=== PATIENT | male | born 1955 | race Caucasian/White ===

== ENCOUNTER 2023-11-18 06:23 | Observation (INO) ==
[~2023-11-18 06:23] MED LIST: Metoclopramide 5 MG/ML VIAL (10 mg) IV PRN; NS 0.45% 1000 ml BAG 1,000 ML IV SCH; Naloxone 0.4 mg VIAL 0.4 mg/ml 1 ml VIAL IV PRN; Ondansetron 4 mg VIAL 2 MG/ML 2 ml VIAL IV PRN
[2023-11-18] MEDS ORDERED: Tranexamic Acid 1 GM/100ML BAG 2,000 MG/200 ML BAG IV ONE (06:38)
[2023-11-18] MEDS ORDERED: ceFAZolin 2 GM in NS PREMIX 2 GM/100 ML BAG IVPB ONE (06:38)
[2023-11-18] MEDS ORDERED: ROPIVACAINE 5 MG/ML 30 ML BTL (0.5%) ONE (06:58)
[2023-11-18 07:08] LABS: Rapid COVID-19 Molecular Undetected (Undetected)
[2023-11-18] MEDS ORDERED: Dexamethasone IV 4 MG/ML VIAL 1 ml VIAL ONE (07:31)
[2023-11-18] MEDS ORDERED: fentaNYL 250 mcg/5 ml 50 MCG/ML 5 ml VIAL (250 MCG) ONE (07:31)
[2023-11-18] MEDS ORDERED: Ondansetron 4 mg VIAL 2 MG/ML 2 ml VIAL ONE (07:31)
[2023-11-18] MEDS ORDERED: Propofol 10 MG/ML 20 ML BTL ONE (07:31)
[2023-11-18] MEDS ORDERED: Rocuronium 50 mg VIAL 10 mg/ml 5 ml VIAL (50 mg) ONE (07:31)
[2023-11-18] MEDS ORDERED: Lidocaine 2% PF 5 ML VIAL ONE (07:31)
[2023-11-18] MEDS ORDERED: Midazolam 2 mg/2 ml VIAL 1 mg/ml 2 ml VIAL (2 mg) ONE (07:31)
[2023-11-18] MEDS ORDERED: Morphine 2 MG/ML SYRINGE IV PRN (09:01)
[2023-11-18] MEDS ORDERED: Lactulose 30 ml UDC PO PRN (09:01)
[2023-11-18] MEDS ORDERED: Ondansetron 4 mg VIAL 2 MG/ML 2 ml VIAL IV PRN (09:01)
[2023-11-18] MEDS ORDERED: Ondansetron ODT 4 mg TAB 4 MG TAB PO PRN (09:01)
[2023-11-18] MEDS ORDERED: Magnesium Hydroxide LIQ 30 ML UDC PO PRN (09:01)
[2023-11-18] MEDS ORDERED: Calcium Carb (TUMS) 500 mg CHEW TAB PO PRN (09:01)
[2023-11-18] MEDS ORDERED: Phenylephrine 40 mcg/mL 10mL (400mcg) SYRINGE ONE ×2 (09:19→11:07)
[2023-11-18] MEDS ORDERED: Esmolol 10 MG/ML 10 ML (100 mg) IV ONE (10:55)
[2023-11-18] MEDS ORDERED: Metoprolol Tartrate 5 mg VIAL 5 ml VIAL (1 mg/ml) ONE (11:04)
[2023-11-18] MEDS: Acetaminophen IV 1 GM/100ML 1,000 MG/100 ML BAG IV ONE (11:36)
[2023-11-18] MEDS: Buffered Lidocaine 1% SYRIN 1 ml INTRADERM ONE (11:36)
[2023-11-18] MEDS: Lactated Ringers 1000 ml BAG 1,000 ML IV SCH ×2 (11:37→14:01)
[2023-11-18] MEDS: Scopolamine 1 mg/72hr PATCH TRANSDERM ONE (11:37)
[2023-11-18] MEDS ORDERED: fentaNYL 100 mcg/2 ml 50 MCG/ML VIAL ONE (12:16)
[2023-11-18] MEDS: fentaNYL 100 mcg/2 ml 50 MCG/ML VIAL IV PRN (12:17)
[2023-11-18 15:25] VITALS: BP 100/73
[2023-11-18] MEDS: ceFAZolin 2 GM in NS PREMIX 2 GM/100 ML BAG IVPB SCH (17:03)
[2023-11-18] MEDS ORDERED: Magnesium Hydroxide LIQ 30 ML UDC PO SCH (21:00)
[2023-11-19] MEDS ORDERED: Vitamin THERAPEUTIC TAB PO SCH (09:00)
== END 2023-11-18 18:10 | disposition home or self-care (01) ==
LOC: OR 06:23 → SSU 06:23
PROVIDERS: ADMIT Orthopaedic Surgery Adult Reconstructive Orthopaedic Surgery; ATTEND Orthopaedic Surgery Adult Reconstructive Orthopaedic Surgery